=== PATIENT | female | born 1995 | race Caucasian/White ===

== ENCOUNTER 2017-10-28 21:29 | Emergency (ER) | payer SELFPAY ==
[~2017-10-28] VITALS: Ht 149.9 cm; Wt 61.0 kg
[~2017-10-28 21:29] MED LIST: MACR100C PO
[2017-10-28 21:36] VITALS: BP 110/62; PULSE 94; RESP 16; TEMP 98.2; O2SAT 97
--- NOTE | 2017-10-28 21:55 | PD ---
HPI Chief Complaint: Skin Problem Time Seen by Provider: 21:43 Travel History International Travel<30 days: No Contact w/Intl Traveler<30days: No Traveled to known affect area: No History of Present Illness HPI 22-year-old female complains of ringworm on the face and extremity. Patient states that she has several spots on the face and extremity with rounded skin rash typical of ringworm. Patient denies any itching pain. Patient try over- the-counter Lotrimin cream recently. PFSH Past Medical History Diminished Hearing: No Immunizations Current: Yes ?: Not LMP: 2-16-18 : 1 Para: 1 Miscarriage: 0 : 0 Social History Alcohol Use: No Tobacco Use: Yes (1 PPD) Substance Use: No Allergies-Medications (Allergen,Severity, Reaction): Coded Allergies: No Known Allergies (Unverified Adverse Reaction, Unknown, 10/28/17) Reported Meds & Prescriptions Reported Meds & Active Scripts Active Macrobid (Nitrofurantoin Macrocrystals) 100 Mg Cap 100 Mg PO BID 7 Days Review of Systems General / Constitutional: No: Fever Eyes: No: Visual changes HENT: No: Headaches Cardiovascular: No: Chest Pain or Discomfort Respiratory: No: Shortness of Breath Gastrointestinal: No: Abdominal Pain Genitourinary: No: Dysuria Musculoskeletal: No: Pain Skin: Positive Rash Neurologic: No: Weakness Psychiatric: No: Depression Endocrine: No: Polydipsia Hematologic/Lymphatic: No: Easy Bruising Physical Exam Narrative GENERAL: Well-nourished, well-developed patient. SKIN: Patient has several circular small patchy rash on the extremity, the right forehead on the right eyebrow. No tenderness no redness no heat noted. HEAD: Normocephalic. EYES: No scleral icterus. No injection or drainage. NECK: Supple, trachea midline. No JVD or lymphadenopathy. CARDIOVASCULAR: Regular rate and rhythm without murmurs, gallops, or rubs. RESPIRATORY: Breath sounds equal bilaterally. No accessory muscle use. GASTROINTESTINAL: Abdomen soft, non-tender, nondistended. MUSCULOSKELETAL: No cyanosis, or edema. BACK: Nontender without obvious deformity. No CVA tenderness. Data Data Last Documented VS Vital Signs Date Time Temp Pulse Resp B/P (MAP) Pulse Ox O2 Delivery O2 Flow Rate FiO2 10/28/17 21:36 98.2 94 16 110/62 (78) 97 Orders Orders Ed Discharge Order (10/28/17 21:55) MDM Medical Decision Making Medical Screen Exam Complete: Yes Emergency Medical Condition: Yes Differential Diagnosis Differential diagnosis including Jes Corporis, eczema, cellulitis. Narrative Course 22-year-old female with circular rash on the face and extremity. Diagnosis Primary Impression: Tinea corporis Patient Instructions: General Instructions Additional Instructions: [id number] antifungal cream as needed. Follow-up local physician. Follow -up with merchandise supervisor if persistent problem. Med/Other Pt SpecificInfo: No Meds Exist/No RX given Disposition: 01 DISCHARGE HOME Condition: Stable Wilber Tapia MD Oct 28, 2017 21:55
== END 2017-10-28 22:13 | disposition home or self-care (01) ==
LOC: PHEFT 21:29
DX: B35.4 Tinea corporis (principal); F17.200 Nicotine dependence, unspecified, uncomplicated
CPT/HCPCS: 99282